=== PATIENT | male | born 1995 | race Caucasian/White ===

== ENCOUNTER 2021-09-30 08:00 | Outpatient (CLI) | payer OTHER | END 2021-09-30 23:59 | LOC: LAB 08:00 | PROVIDERS: ATTEND Emergency Medicine | DX: R07.0 Pain in throat (principal); Z20.822 Contact with and (suspected) exposure to COVID-19 | CPT/HCPCS: 87070 ==

== ENCOUNTER 2023-07-25 08:00 | Outpatient (CLI) | payer OTHER ==
--- NOTE | 2023-07-25 18:08 | XRAY Report ---
PROCEDURE: Lumbar Spine 2 View INDICATIONS: SPRAIN OF LUMBAR SPINE TECHNIQUE: 3 views of the lumbar spine were acquired. COMPARISON: None. FINDINGS: Bones: 5 [id number] vertebrae are present. There is normal bony alignment. No vertebral body compression fractures. No suspicious bony lesions. Soft tissues: Overlying bowel gas pattern is normal. No suspicious soft tissue calcifications. IMPRESSION: No acute osseous abnormality. If symptoms persist or there is continued clinical concern , further evaluation with MRI or CT may be helpful. Reviewed by: Gerardo Christian MD on 07/25/2023 6:06 PM PDT Approved by: Gerardo Christian MD on 07/25/2023 6:06 PM PDT Station ID: [id number]
== END 2023-07-25 23:59 | disposition home or self-care (01) ==
LOC: DI.S 08:00
PROVIDERS: ATTEND Physician Assistant Medical
DX: S33.5XXA Sprain of ligaments of lumbar spine, initial encounter (principal)